=== PATIENT | male | born 1985 | race Caucasian/White ===

== ENCOUNTER 2020-09-16 05:24 | Emergency (ER) | payer MEDICAID, MEDICARE, OTHER ==
[~2020-09-16] VITALS: Ht 172.7 cm; Wt 119.0 kg
--- NOTE | 2020-09-16 05:35 | NUR ---
Pt has left foot amputation wears prosthesis, gets cramps. Had cramp while at work resulting in GLF struck left elbow on ground. Work sent him in for evaluation.
[2020-09-16] MEDS ORDERED: METHOCARBAMOL 500 MG TABLET ONE (05:55)
--- NOTE | 2020-09-16 05:59 | NUR ---
Medicated per order, pt waiting for xray. Call chase in reach. Will continue to monitor.
[2020-09-16] MEDS ORDERED: METHOCARBAMOL 750 MG TABLET PO ONE (06:00)
--- NOTE | 2020-09-16 06:11 | NUR ---
To velia via milind with [employer].
--- NOTE | 2020-09-16 06:41 | NUR ---
Back from xray, reports decrease in pain to calf now 2/10 no spasms
--- NOTE | 2020-09-16 07:04 | NUR ---
RECEIVED REPORT AND CARE FROM [facility] AT THIS TIME. PT REPORTS PAIN IMPROVED TO 2/10, "BETTER" RESTING COMFORTABLY. AWAITING RECHECK, DENIES NEED TO USE RESTROOM. CALL LIGHT IN REACH. FALL PRECAUTIONS IN PLACE. SIDE RAILS UPX2. A&OX4. NAD NOTED. VSS
[2020-09-16] MEDS ORDERED: BUPR-173 PO (07:07)
[2020-09-16] MEDS ORDERED: ARIP2TAB2 PO (07:07)
[2020-09-16] MEDS ORDERED: LAMO200T3 PO (07:07)
--- NOTE | 2020-09-16 07:48 | NUR ---
DR. GALVAN AT BEDSIDE FOR RECHECK, AWAITING CHART AND DISCHARGE PAPERS FROM [facility].
[2020-09-16 08:28] VITALS: BP 102/71
== END 2020-09-16 08:43 | disposition home or self-care (01) ==
LOC: ED 06:59
DX: S50.02XA Contusion of left elbow, initial encounter (principal); S80.12XA Contusion of left lower leg, initial encounter; J45.909 Unspecified asthma, uncomplicated; W18.30XA Fall on same level, unspecified, initial encounter; Y93.89 Activity, other specified; Y92.89 Other specified places as the place of occurrence of the external cause; Y99.0 Civilian activity done for income or pay
CPT/HCPCS: 99284